=== PATIENT | female | born 1985 | race Caucasian/White ===

== ENCOUNTER 2021-01-13 15:18 | Emergency (ER) | payer OTHER ==
[~2021-01-13] VITALS: Ht 167.6 cm; Wt 60.0 kg
--- NOTE | 2021-01-13 17:13 | NUR ---
manager presentation completed. Radiology results reviewed. MD arrived at bedside for discussion of plan. Awaiting splint and d/c.
--- NOTE | 2021-01-13 17:55 | NUR ---
Splint in place on RLL with good distal CMS noted on reassessment at this time. Pt able to demonstrate proper use of crutches and assisted to discharge desk.
[2021-01-13 18:18] VITALS: BP 120/65
== END 2021-01-13 18:20 | disposition home or self-care (01) ==
LOC: ED 17:45
DX: S92.591A Other fracture of right lesser toe(s), initial encounter for closed fracture (principal); X50.0XXA Overexertion from strenuous movement or load, initial encounter; Y93.89 Activity, other specified; Y92.410 Unspecified street and highway as the place of occurrence of the external cause; Y99.8 Other external cause status
CPT/HCPCS: 29515; 99283

== ENCOUNTER 2021-02-16 09:52 | Inpatient (IN) | payer OTHER ==
[~2021-02-16] VITALS: Ht 167.6 cm; Wt 62.0 kg
--- NOTE | 2021-02-16 09:55 | NUR ---
PT BROUGHT IN BY [facility] FROM [facility] FOR CHIEF COMLPAINT OF RIGHT UPPER ABD PAIN STARTING TODAY, PT RECIEVED FIRST DOSE OF METHADONE LAST NIGHT. PER EMS PT WAS HYPOTENSIVE UPON ARRIVAL 50/30, COOL AND DIAPHORETIC. PT IS ALERT ORIENTED AND ABLE TO ANSWER QUESTIONS
--- NOTE | 2021-02-16 10:05 | NUR ---
JONATHAN WOLF AT BEDSIDE FOR EVALUATION AND US EXAM
[2021-02-16] MEDS ORDERED: HYDROmorphone 1 MG/ML, 1ML INJ ONE (10:21)
[2021-02-16] MEDS ORDERED: ONDANSETRON 2MG/ML, 2ML ONE (10:21)
[2021-02-16] MEDS ORDERED: SODIUM CHLORIDE 0.9% 1,000ML IVBOLUS ONE (10:30)
[2021-02-16] MEDS ORDERED: ONDANSETRON 2MG/ML, 2ML IVPush ONE (10:30)
[2021-02-16] MEDS ORDERED: HYDROmorphone 1 MG/ML, 1ML INJ IV ONE ×2 (10:30→11:00)
--- NOTE | 2021-02-16 10:42 | NUR ---
JONATHAN WOLF AT BEDSIDE TO DISCUSS POC
[2021-02-16] MEDS ORDERED: CEFTRIAXONE 2 GM in DEXTROSE 5% 50 ML IVPB ONE (11:00)
[2021-02-16] MEDS ORDERED: METRONIDAZOLE PMX 500MG/100ML 100 ML IV ONE (11:00)
[2021-02-16 11:02] LABS: MEAN CORPUSCULAR HEMOGLOBIN 31.4 pg (27.0-34.8); MEAN CORPUSCULAR HGB CONC 34.1 g/dL (32.4-35.8); MEAN PLATELET VOLUME 8.7 fL (7.4-10.4); PLATELET COUNT 418 x10^3/uL (130-400); RED BLOOD COUNT 5.31 x10^6/uL (3.82-5.3); RED CELL DISTRIBUTION WIDTH 12.9 % (9.6-15.2)
--- NOTE | 2021-02-16 11:02 | NUR ---
REPORT TO ALEJANDRA COBB
[2021-02-16 11:13] LABS: ALBUMIN 2.4 g/dL (3.4-5.0); ANION GAP 12 mmol/L (5-15); CALCIUM 9.2 mg/dL (8.5-10.1); CHLORIDE 103 mmol/L (98-107)
[2021-02-16] MEDS ORDERED: METRONIDAZOLE PMX 500MG/100ML 100 ML ONE (11:15)
[2021-02-16 11:20] LABS: ALKALINE PHOSPHATASE 60 U/L (45-117); BILIRUBIN,TOTAL 0.6 mg/dL (0.2-1.0); CREATININE 0.74 mg/dL (0.55-1.02); TOTAL PROTEIN 5.6 g/dL (6.4-8.2)
[2021-02-16 11:21] LABS: ALANINE AMINOTRANSFERASE 8 U/L (12-78)
[2021-02-16] MEDS ORDERED: CHLORHEXIDINE 15 ML UDC ONE (11:23)
[2021-02-16] MEDS ORDERED: CHLORHEXIDINE 15 ML UDC PO ONE (11:30)
[2021-02-16 11:50] LABS: LYMPH#(MANUAL) 1.06 x10^3/uL (1-3.4); LYMPHS% (MANUAL) 8 % (22-44); MONOS% (MANUAL) 3 % (2-9)
[2021-02-16 11:51] LABS: BAND#(MANUAL) 3.99 x10^3/uL; BANDS%(MANUAL) 30 % (0-7); SEG#(MANUAL) 7.85 x10^3/uL (1.8-6.8); SEGS% (MANUAL) 59 % (42-75)
[2021-02-16 11:52] LABS: <PLATELET ESTIMATE> INCREASED; <PLT MORPHOLOGY> NORMAL PLT MORPH; <RBC MORPHOLOGY> NORMAL
[2021-02-16] MEDS ORDERED: OMNIPAQUE 350 MG/ML, 100ML BOTTLE ONE (12:00)
[2021-02-16] MEDS ORDERED: FENTANYL PF 250 MCG/5ML ONE (12:05)
[2021-02-16] MEDS ORDERED: PROPOFOL 50 ML ONE (12:05)
[2021-02-16] MEDS ORDERED: SUCCINYLCHOLINE 20 MG/ML, 10ML ONE (12:27)
[2021-02-16] MEDS ORDERED: ROCURONIUM 10MG/ML,5ML ONE (12:27)
[2021-02-16] MEDS ORDERED: PROPOFOL 10 MG/ML, 20ML ONE (12:27)
[2021-02-16] MEDS ORDERED: LABETALOL 5MG/ML, 20ML IV PRN (12:30)
[2021-02-16] MEDS ORDERED: EPHEDRINE 50 MG/ML, 1ML IVPush PRN (12:30)
[2021-02-16] MEDS ORDERED: DIPHENHYDRAMINE 50 MG/ML, 1ML IVPush PRN (12:30)
[2021-02-16] MEDS ORDERED: morphine SULFATE 10 MG/ML, 1ML IVPush PRN (12:30)
[2021-02-16] MEDS ORDERED: ONDANSETRON 2MG/ML, 2ML IVPush PRN (12:30)
[2021-02-16] MEDS ORDERED: EPHEDRINE 50 MG/ML, 1ML IM PRN (12:30)
[2021-02-16] MEDS ORDERED: OXYcodone 5 MG/5 ML ORAL.SOL UDC PO PRN (12:30)
[2021-02-16] MEDS ORDERED: PROMETHAZINE 25 MG/ML, 1ML IVPush PRN (12:30)
[2021-02-16] MEDS ORDERED: MEPERIDINE/PF 25MG/0.5ML IVPush PRN (12:30)
[2021-02-16] MEDS ORDERED: DIAZEPAM 5 MG/ML, 2ML IVPush PRN (12:30)
[2021-02-16] MEDS ORDERED: FENTANYL PF 100 MCG/2ML ONE (13:19)
[2021-02-16] MEDS: FENTANYL PF 100 MCG/2ML IV PRN ×2 (13:20→13:28)
[2021-02-16 14:14] VITALS: BP 136/90
[2021-02-16] MEDS ORDERED: LACTATED RINGERS 1,000 ML IVBOLUS ONE (14:30)
[2021-02-16] MEDS: HYDROmorphone 1 MG/ML, 1ML INJ IV PRN ×4 (14:45→23:56)
[2021-02-16] MEDS: PANTOPRAZOLE 80 MG in SODIUM CHLORIDE 0.9% 100 ML IV SCH ×2 (14:56→23:41)
[2021-02-16] MEDS ORDERED: POTASSIUM CHLORIDE 20 MEQ in SODIUM CHLORIDE 0.9% 250 ML IV ONE (15:00)
[2021-02-16] MEDS: ERTAPENEM 1 GM in SODIUM CHLORIDE 0.9% 50 ML IV SCH (15:00)
[2021-02-16] MEDS ORDERED: morphine SULFATE 10 MG/ML, 1ML IV PRN (15:30)
[2021-02-16] MEDS ORDERED: LORazepam 2 MG/ML, 1ML IV PRN (15:30)
[2021-02-16] MEDS ORDERED: ONDANSETRON 2MG/ML, 2ML IV PRN (15:30)
[2021-02-16] MEDS ORDERED: LORazepam 1MG TABLET PO PRN (15:30)
[2021-02-16] MEDS ORDERED: D5%-0.45NACL+KCL 20MEQ 1,000 ML IV SCH (15:30)
[2021-02-16] MEDS ORDERED: HYDROmorphone 2 MG/ML, 1ML IVPush PRN (15:30)
[2021-02-16 16:15] LABS: ANION GAP 10 mmol/L (5-15); CALCIUM 9.5 mg/dL (8.5-10.1); CHLORIDE 102 mmol/L (98-107); CREATININE 0.51 mg/dL (0.55-1.02)
[2021-02-16] MEDS ORDERED: MAGNESIUM SULFATE PMX 2GM/50ML 50 ML IV ONE (17:00)
[2021-02-16 17:29] LABS: MICROSCOPIC INDICATED
[2021-02-16] MEDS: SODIUM BICARBONATE 8.4% 150 MEQ in DEXTROSE 5% 1,000 ML IV SCH (17:34)
[2021-02-16] MEDS ORDERED: CEFOTETAN PMX 1GM/50ML 50 ML IVPB SCH (18:00)
[2021-02-16] MEDS: METRONIDAZOLE PMX 500MG/100ML 100 ML IVPB SCH (20:53)
[2021-02-17] MEDS: SODIUM BICARBONATE 8.4% 150 MEQ in DEXTROSE 5% 1,000 ML IV SCH (01:43)
[2021-02-17] MEDS: HYDROmorphone 1 MG/ML, 1ML INJ IV PRN ×9 (03:02→22:38)
[2021-02-17 03:45] LABS: MEAN CORPUSCULAR HEMOGLOBIN 31.3 pg (27.0-34.8); MEAN PLATELET VOLUME 8.9 fL (7.4-10.4); PLATELET COUNT 259 x10^3/uL (130-400); RED BLOOD COUNT 4.74 x10^6/uL (3.82-5.3)
[2021-02-17 03:55] LABS: ALANINE AMINOTRANSFERASE 10 U/L (12-78); ALBUMIN 1.9 g/dL (3.4-5.0); CHLORIDE 99 mmol/L (98-107); CREATININE 0.44 mg/dL (0.55-1.02)
[2021-02-17 03:59] LABS: <PLATELET ESTIMATE> ADEQUATE; <PLT MORPHOLOGY> NORMAL PLT MORPH; <RBC MORPHOLOGY> NORMAL; ALKALINE PHOSPHATASE 68 U/L (45-117); ANION GAP 8 mmol/L (5-15); BAND#(MANUAL) 2.17 x10^3/uL; BANDS%(MANUAL) 12 % (0-7); BILIRUBIN,TOTAL 0.3 mg/dL (0.2-1.0); CALCIUM 8.3 mg/dL (8.5-10.1); LYMPH#(MANUAL) 1.99 x10^3/uL (1-3.4); LYMPHS% (MANUAL) 11 % (22-44); MONOS#(MANUAL) 1.09 x10^3/uL (0.3-2.7); MONOS% (MANUAL) 6 % (2-9); SEG#(MANUAL) 12.85 x10^3/uL (1.8-6.8); SEGS% (MANUAL) 71 % (42-75); TOTAL PROTEIN 5.4 g/dL (6.4-8.2)
[2021-02-17] MEDS: METRONIDAZOLE PMX 500MG/100ML 100 ML IVPB SCH (04:38)
[2021-02-17] MEDS: ENOXAPARIN 40 MG/0.4 ML SQ SCH (06:05)
[2021-02-17] MEDS ORDERED: METOPROLOL 1 MG/ML, 5ML IVPush PRN (07:30)
[2021-02-17] MEDS: PANTOPRAZOLE 80 MG in SODIUM CHLORIDE 0.9% 100 ML IV SCH ×2 (09:39→19:59)
[2021-02-17] MEDS ORDERED: LACTATED RINGERS 1,000 ML IV SCH ×2 (11:00)
[2021-02-17] MEDS: ERTAPENEM 1 GM in SODIUM CHLORIDE 0.9% 50 ML IV SCH (15:21)
[2021-02-17] MEDS: LACTATED RINGERS 1,000 ML IV SCH ×2 (17:40→17:51)
[2021-02-17] MEDS ORDERED: LACTATED RINGERS 1,000 ML IVBOLUS ONE (18:00)
[2021-02-18] MEDS: LACTATED RINGERS 1,000 ML IV SCH ×2 (00:20→03:24)
[2021-02-18] MEDS: HYDROmorphone 1 MG/ML, 1ML INJ IV PRN ×10 (00:57→23:59)
[2021-02-18] MEDS: PANTOPRAZOLE 80 MG in SODIUM CHLORIDE 0.9% 100 ML IV SCH ×2 (04:52→19:26)
[2021-02-18] MEDS: ENOXAPARIN 40 MG/0.4 ML SQ SCH (05:14)
[2021-02-18 05:29] LABS: MEAN CORPUSCULAR HEMOGLOBIN 31.5 pg (27.0-34.8); MEAN CORPUSCULAR HGB CONC 33.7 g/dL (32.4-35.8); MEAN PLATELET VOLUME 8.5 fL (7.4-10.4); PLATELET COUNT 231 x10^3/uL (130-400); RED BLOOD COUNT 3.43 x10^6/uL (3.82-5.3); RED CELL DISTRIBUTION WIDTH 12.9 % (9.6-15.2)
[2021-02-18 05:37] LABS: CHLORIDE 101 mmol/L (98-107)
[2021-02-18 05:44] LABS: ANION GAP 8 mmol/L (5-15); CREATININE 0.26 mg/dL (0.55-1.02)
[2021-02-18 06:11] LABS: BAND#(MANUAL) 0.66 x10^3/uL; BANDS%(MANUAL) 5 % (0-7); LYMPH#(MANUAL) 1.31 x10^3/uL (1-3.4); LYMPHS% (MANUAL) 10 % (22-44); MONOS#(MANUAL) 0.52 x10^3/uL (0.3-2.7); MONOS% (MANUAL) 4 % (2-9); SEG#(MANUAL) 10.61 x10^3/uL (1.8-6.8); SEGS% (MANUAL) 81 % (42-75)
[2021-02-18 06:12] LABS: <PLATELET ESTIMATE> ADEQUATE; <PLT MORPHOLOGY> NORMAL PLT MORPH; <RBC MORPHOLOGY> NORMAL
[2021-02-18] MEDS: POTASSIUM CHLORIDE 40 MEQ in D5%-LACTATED RINGERS 1,000 ML IV SCH (10:02)
[2021-02-18] MEDS ORDERED: LACTATED RINGERS 1,000 ML IV SCH (11:00)
[2021-02-18] MEDS ORDERED: POTASSIUM CHLORIDE 40 MEQ in LACTATED RINGERS 1,000 ML IV SCH (11:00)
[2021-02-18 14:05] VITALS: BP 128/75
[2021-02-18] MEDS: ERTAPENEM 1 GM in SODIUM CHLORIDE 0.9% 50 ML IV SCH (15:10)
[2021-02-18] MEDS ORDERED: DOCUSATE 100 MG CAPSULE PO PRN (20:00)
[2021-02-18 20:22] VITALS: BP 123/78
[2021-02-19 00:43] VITALS: BP 114/75
[2021-02-19] MEDS: POTASSIUM CHLORIDE 40 MEQ in D5%-LACTATED RINGERS 1,000 ML IV SCH (00:45)
[2021-02-19] MEDS: HYDROmorphone 1 MG/ML, 1ML INJ IV PRN ×9 (02:20→21:55)
[2021-02-19] MEDS: PANTOPRAZOLE 80 MG in SODIUM CHLORIDE 0.9% 100 ML IV SCH (05:50)
[2021-02-19] MEDS: ENOXAPARIN 40 MG/0.4 ML SQ SCH (05:50)
[2021-02-19 07:31] VITALS: BP 123/81
[2021-02-19 07:36] LABS: ANION GAP 6 mmol/L (5-15); BASOPHILS % (AUTO) 0 % (0-1); CALCIUM 8.4 mg/dL (8.5-10.1); CHLORIDE 104 mmol/L (98-107); EOSINOPHILS % (AUTO) 0 % (1-7); LYMPHOCYTES % (AUTO) 12 % (22-44); MEAN CORPUSCULAR HEMOGLOBIN 31.7 pg (27.0-34.8); MEAN CORPUSCULAR HGB CONC 34.1 g/dL (32.4-35.8); MONOCYTES % (AUTO) 5 % (2-9); NEUTROPHILS % (AUTO) 82 % (42-75); PLATELET COUNT 260 x10^3/uL (130-400); RED BLOOD COUNT 3.33 x10^6/uL (3.82-5.3)
[2021-02-19 07:42] LABS: CREATININE 0.24 mg/dL (0.55-1.02)
[2021-02-19] MEDS: PANTOPRAZOLE 40 MG IV IVPush SCH ×2 (08:34→17:43)
[2021-02-19] MEDS ORDERED: POTASSIUM CHLORIDE 20 MEQ TAB.ER.PRT PO ONE (11:00)
[2021-02-19 13:22] VITALS: BP 132/81
[2021-02-19] MEDS: ERTAPENEM 1 GM in SODIUM CHLORIDE 0.9% 50 ML IV SCH (15:05)
[2021-02-19 19:47] VITALS: BP 124/87
[2021-02-19] MEDS: CLARITHROMYCIN 500 MG TABLET PO SCH (21:41)
[2021-02-20] MEDS: HYDROmorphone 1 MG/ML, 1ML INJ IV PRN ×4 (00:06→08:29)
[2021-02-20 01:57] VITALS: BP 131/91
[2021-02-20] MEDS: PANTOPRAZOLE 40 MG IV IVPush SCH ×2 (05:50→19:05)
[2021-02-20] MEDS: ENOXAPARIN 40 MG/0.4 ML SQ SCH (05:51)
[2021-02-20 08:08] VITALS: BP 142/93
[2021-02-20] MEDS: CLARITHROMYCIN 500 MG TABLET PO SCH ×2 (08:29→20:10)
[2021-02-20] MEDS: OXYcodone IR 5MG TABLET PO PRN ×3 (12:19→20:10)
[2021-02-20 14:24] VITALS: BP 128/88
[2021-02-20] MEDS: ERTAPENEM 1 GM in SODIUM CHLORIDE 0.9% 50 ML IV SCH (16:19)
[2021-02-20 18:56] VITALS: BP 124/75
[2021-02-21] MEDS: OXYcodone IR 5MG TABLET PO PRN ×3 (00:11→08:03)
[2021-02-21 02:05] VITALS: BP 122/84
[2021-02-21 05:11] LABS: BASOPHILS % (AUTO) 1 % (0-1); EOSINOPHILS % (AUTO) 4 % (1-7); LYMPHOCYTES % (AUTO) 30 % (22-44); MEAN CORPUSCULAR HEMOGLOBIN 31.4 pg (27.0-34.8); MEAN CORPUSCULAR HGB CONC 34.1 g/dL (32.4-35.8); MEAN PLATELET VOLUME 7.6 fL (7.4-10.4); MONOCYTES % (AUTO) 10 % (2-9); NEUTROPHILS % (AUTO) 56 % (42-75); PLATELET COUNT 368 x10^3/uL (130-400); RED BLOOD COUNT 3.71 x10^6/uL (3.82-5.3)
[2021-02-21 05:20] LABS: ANION GAP 5 mmol/L (5-15); CALCIUM 8.8 mg/dL (8.5-10.1); CHLORIDE 105 mmol/L (98-107); CREATININE 0.32 mg/dL (0.55-1.02)
[2021-02-21] MEDS: PANTOPRAZOLE 40 MG IV IVPush SCH (05:51)
[2021-02-21] MEDS: ENOXAPARIN 40 MG/0.4 ML SQ SCH (05:52)
[2021-02-21] MEDS: CLARITHROMYCIN 500 MG TABLET PO SCH (08:02)
[2021-02-21 08:05] VITALS: BP 130/87
[2021-02-21] MEDS ORDERED: metroNIDAZOLE 500 MG TABLET PO SCH (11:00)
[2021-02-21] MEDS ORDERED: LEVOFLOXACIN 750 MG TABLET PO SCH (11:00)
[2021-02-21] MEDS ORDERED: CLAR-14 PO (11:33)
[2021-02-21] MEDS ORDERED: PANT40TA3 PO (11:33)
[2021-02-21] MEDS ORDERED: METR500T PO (11:33)
[2021-02-21] MEDS ORDERED: LEVO750T6 PO (11:33)
[2021-02-21] MEDS ORDERED: OXYC5TAB98 PO (11:33)
[2021-02-21 13:00] VITALS: BP 130/88
[2021-02-21] MEDS ORDERED: PANTOPRAZOLE 40MG TABLET PO SCH (16:00)
== END 2021-02-21 16:37 | DRG 853 ==
LOC: OR 10:15 → CCU 13:49 → 4NE 02-18 13:37
PROVIDERS: ADMIT Emergency Medicine; ATTEND Internal Medicine
PROC: 0DJ60ZZ Inspection of Stomach, Open Approach (ICD-10-PCS; 2021-02-16)
PROC: 0T9B30Z Drainage of Bladder with Drainage Device, Percutaneous Approach (ICD-10-PCS; principal; 2021-02-16 18:00)
DX: A41.9 Sepsis, unspecified organism (principal); K26.5 Chronic or unspecified duodenal ulcer with perforation; R65.21 Severe sepsis with septic shock; D62 Acute posthemorrhagic anemia; E87.1 Hypo-osmolality and hyponatremia; E87.2 Acidosis; Z20.822 Contact with and (suspected) exposure to COVID-19; E16.2 Hypoglycemia, unspecified; E87.6 Hypokalemia; J45.909 Unspecified asthma, uncomplicated; S92.354A Nondisplaced fracture of fifth metatarsal bone, right foot, initial encounter for closed fracture; G89.29 Other chronic pain; M25.579 Pain in unspecified ankle and joints of unspecified foot; B95.62 Methicillin resistant Staphylococcus aureus infection as the cause of diseases classified elsewhere; R73.9 Hyperglycemia, unspecified; R74.8 Abnormal levels of other serum enzymes; Z79.899 Other long term (current) drug therapy; Z79.01 Long term (current) use of anticoagulants; Z79.891 Long term (current) use of opiate analgesic; Z88.8 Allergy status to other drugs, medicaments and biological substances; D72.829 Elevated white blood cell count, unspecified
CPT/HCPCS: 36415; 73630; 74240; 96361; 96374; 96375; 99291; J7121; 71045; 71275; 74177; 80048; 80053; 81001; 82962; 83036; 83605; 83690; 83735; 84100; 84443; 84703; 85025; 85379; 86850; 86900; 87040; 87081; 87635; 93005; G0378; J0696; J1170; J1335; J1650; J2405; J2704; J3010; J3480; J7070; Q9967; C1760; C9113; J0330; J2060; J3475; J7030; J7050; J7120

== ENCOUNTER 2021-02-27 09:51 | Inpatient (IN) | payer OTHER ==
[~2021-02-27] VITALS: Ht 167.6 cm; Wt 64.4 kg
[~2021-02-27 09:51] MED LIST: CLAR-14 PO; LEVO750T6 PO; METR500T PO; OXYC5TAB98 PO; PANT40TA3 PO
[2021-02-27] MEDS ORDERED: PROMETHAZINE 25 MG/ML, 1ML ONE (10:21)
[2021-02-27] MEDS ORDERED: MORPHINE SULFATE 4 MG/ML, 1ML ONE (10:22)
[2021-02-27] MEDS ORDERED: PROMETHAZINE 25 MG/ML, 1ML IM ONE (10:30)
[2021-02-27] MEDS ORDERED: SODIUM CHLORIDE FLUSH 10ML SYR IVF ONE (10:30)
[2021-02-27] MEDS ORDERED: SODIUM CHLORIDE 0.9% 1,000ML IVBOLUS ONE ×2 (10:30→12:30)
[2021-02-27] MEDS ORDERED: MORPHINE SULFATE 4 MG/ML, 1ML IVPush PRN (10:30)
[2021-02-27] MEDS ORDERED: OMNIPAQUE 350 MG/ML, 100ML BOTTLE ONE (10:50)
--- NOTE | 2021-02-27 11:03 | NUR ---
in custody. to and from ct. cooperative. labs/ct pending, aware of need for ua. as
--- NOTE | 2021-02-27 11:05 | NUR ---
sts pain improved after meds. as
[2021-02-27 11:07] LABS: BASOPHILS % (AUTO) 1 % (0-1); EOSINOPHILS % (AUTO) 0 % (1-7); LYMPHOCYTES % (AUTO) 16 % (22-44); MEAN CORPUSCULAR HEMOGLOBIN 30.9 pg (27.0-34.8); MEAN CORPUSCULAR HGB CONC 33.1 g/dL (32.4-35.8); MEAN PLATELET VOLUME 7.6 fL (7.4-10.4); MONOCYTES % (AUTO) 6 % (2-9); NEUTROPHILS % (AUTO) 77 % (42-75); PLATELET COUNT 636 x10^3/uL (130-400); RED BLOOD COUNT 4.27 x10^6/uL (3.82-5.3); RED CELL DISTRIBUTION WIDTH 13.6 % (9.6-15.2)
[2021-02-27 11:17] LABS: ANION GAP 7 mmol/L (5-15); CALCIUM 9.3 mg/dL (8.5-10.1); CHLORIDE 108 mmol/L (98-107)
[2021-02-27 11:21] LABS: ALANINE AMINOTRANSFERASE 33 U/L (12-78); ALKALINE PHOSPHATASE 85 U/L (45-117); BILIRUBIN,TOTAL 0.3 mg/dL (0.2-1.0); CREATININE 0.48 mg/dL (0.55-1.02); TOTAL PROTEIN 7.1 g/dL (6.4-8.2)
[2021-02-27 11:57] LABS: MICROSCOPIC NOT IND
[2021-02-27] MEDS ORDERED: AMPICILLIN/SULBACTAM 3 GM in SODIUM CHLORIDE 0.9% 100 ML IV ONE (12:00)
[2021-02-27] MEDS ORDERED: METRONIDAZOLE PMX 500MG/100ML 100 ML IV ONE (12:00)
[2021-02-27] MEDS ORDERED: METRONIDAZOLE PMX 500MG/100ML 100 ML ONE (12:07)
--- NOTE | 2021-02-27 12:27 | NUR ---
TBADM. EKG DONE, PLAN ABX.
--- NOTE | 2021-02-27 12:48 | NUR ---
BREAK RN: PT UPRIGHT ON GURNEY AWAKE & ASKING FOR FOOD, [facility] AT BS, PT RESPONDS APPROP TO STAFF, NAD, NO NEEDS AT THIS TIME, [facility] AT BS WHILE IN CUSTODY, CALL LIGHT WITHIN REACH.
[2021-02-27] MEDS: LACTATED RINGERS 1,000 ML IV SCH (13:30)
[2021-02-27] MEDS: ENOXAPARIN 40 MG/0.4 ML SQ SCH (13:30)
[2021-02-27] MEDS ORDERED: HYDROmorphone 2 MG/ML, 1ML IVPush PRN (13:30)
[2021-02-27] MEDS ORDERED: ONDANSETRON 2MG/ML, 2ML IVPush PRN (13:30)
[2021-02-27] MEDS: METOCLOPRAMIDE 5 MG/ML, 2ML IVPush SCH ×2 (13:30→19:25)
--- NOTE | 2021-02-27 13:31 | NUR ---
2ND ABX [place], PT AWAITING ROOM FOR ADMIT. GIVEN WATER, ON CLEAR LIQUID DIET.
--- NOTE | 2021-02-27 14:47 | NUR ---
SBAR REPORT GIVEN TO RAHUL NURSING SPECIALIST
[2021-02-27] MEDS: ACETAMINOPHEN 325 MG TABLET PO PRN ×2 (17:14→21:48)
[2021-02-27] MEDS: VANCOMYCIN 50 MG/ML ORAL SUSP PO SCH (17:14)
[2021-02-27 20:18] VITALS: BP 130/80
[2021-02-27] MEDS: AMPICILLIN/SULBACTAM 3 GM in SODIUM CHLORIDE 0.9% 100 ML IV SCH (20:35)
[2021-02-27] MEDS: PANTOPRAZOLE 40 MG IV IVPush SCH (20:35)
[2021-02-27] MEDS: MELATONIN 5 MG TABLET PO PRN (21:48)
[2021-02-27] MEDS: CLARITHROMYCIN 500 MG TABLET PO SCH (21:48)
[2021-02-28] MEDS: VANCOMYCIN 50 MG/ML ORAL SUSP PO SCH ×5 (00:20→23:01)
[2021-02-28 01:18] VITALS: BP 113/69
[2021-02-28] MEDS: AMPICILLIN/SULBACTAM 3 GM in SODIUM CHLORIDE 0.9% 100 ML IV SCH ×4 (01:51→20:04)
[2021-02-28] MEDS: METOCLOPRAMIDE 5 MG/ML, 2ML IVPush SCH ×4 (01:51→20:00)
[2021-02-28] MEDS: LACTATED RINGERS 1,000 ML IV SCH ×2 (01:51→10:08)
[2021-02-28] MEDS: ACETAMINOPHEN 325 MG TABLET PO PRN ×4 (06:18→20:04)
[2021-02-28 06:46] LABS: BASOPHILS % (AUTO) 1 % (0-1); EOSINOPHILS % (AUTO) 1 % (1-7); LYMPHOCYTES % (AUTO) 18 % (22-44); MEAN CORPUSCULAR HEMOGLOBIN 31.4 pg (27.0-34.8); MEAN CORPUSCULAR HGB CONC 33.6 g/dL (32.4-35.8); MEAN PLATELET VOLUME 7.6 fL (7.4-10.4); MONOCYTES % (AUTO) 7 % (2-9); NEUTROPHILS % (AUTO) 74 % (42-75); PLATELET COUNT 481 x10^3/uL (130-400); RED BLOOD COUNT 3.78 x10^6/uL (3.82-5.3)
[2021-02-28 06:52] LABS: ANION GAP 3 mmol/L (5-15); CALCIUM 8.5 mg/dL (8.5-10.1); CHLORIDE 110 mmol/L (98-107)
[2021-02-28 06:58] VITALS: BP 136/78
[2021-02-28] MEDS: PANTOPRAZOLE 40 MG IV IVPush SCH ×2 (08:34→20:00)
[2021-02-28] MEDS: CLARITHROMYCIN 500 MG TABLET PO SCH ×2 (08:35→20:04)
[2021-02-28] MEDS: OXYcodone IR 5MG TABLET PO PRN ×3 (10:13→23:01)
[2021-02-28 12:10] VITALS: BP 130/83
[2021-02-28] MEDS: ENOXAPARIN 40 MG/0.4 ML SQ SCH (14:22)
[2021-02-28 17:36] LABS: CLOSTRIDIUM DIFFICILE ANTIGEN NEGATIVE; CLOSTRIDIUM DIFFICILE TOXIN NEGATIVE (Negative)
[2021-02-28 19:01] VITALS: BP 132/82
[2021-02-28] MEDS: MELATONIN 5 MG TABLET PO PRN (23:01)
[2021-03-01 01:40] VITALS: BP 115/74
[2021-03-01] MEDS: AMPICILLIN/SULBACTAM 3 GM in SODIUM CHLORIDE 0.9% 100 ML IV SCH ×4 (02:00→19:29)
[2021-03-01] MEDS: METOCLOPRAMIDE 5 MG/ML, 2ML IVPush SCH ×4 (02:13→21:48)
[2021-03-01] MEDS: LACTATED RINGERS 1,000 ML IV SCH (03:36)
[2021-03-01] MEDS: OXYcodone IR 5MG TABLET PO PRN ×3 (05:22→19:31)
[2021-03-01] MEDS: ACETAMINOPHEN 325 MG TABLET PO PRN ×3 (05:22→19:29)
[2021-03-01] MEDS: VANCOMYCIN 50 MG/ML ORAL SUSP PO SCH (05:22)
[2021-03-01 05:41] LABS: BASOPHILS % (AUTO) 1 % (0-1); EOSINOPHILS % (AUTO) 2 % (1-7); LYMPHOCYTES % (AUTO) 24 % (22-44); MEAN CORPUSCULAR HEMOGLOBIN 31.1 pg (27.0-34.8); MEAN CORPUSCULAR HGB CONC 33.6 g/dL (32.4-35.8); MEAN PLATELET VOLUME 7.4 fL (7.4-10.4); MONOCYTES % (AUTO) 7 % (2-9); NEUTROPHILS % (AUTO) 67 % (42-75); PLATELET COUNT 473 x10^3/uL (130-400); RED BLOOD COUNT 3.84 x10^6/uL (3.82-5.3); RED CELL DISTRIBUTION WIDTH 13.9 % (9.6-15.2)
[2021-03-01 07:09] VITALS: BP 126/79
[2021-03-01] MEDS: PANTOPRAZOLE 40 MG IV IVPush SCH ×2 (08:32→21:47)
[2021-03-01] MEDS: CLARITHROMYCIN 500 MG TABLET PO SCH ×2 (08:33→21:47)
[2021-03-01 12:12] VITALS: BP 123/65
[2021-03-01] MEDS: ENOXAPARIN 40 MG/0.4 ML SQ SCH (14:16)
[2021-03-01 19:50] VITALS: BP 126/70
[2021-03-01] MEDS: MELATONIN 5 MG TABLET PO PRN (21:48)
[2021-03-02] MEDS: AMPICILLIN/SULBACTAM 3 GM in SODIUM CHLORIDE 0.9% 100 ML IV SCH ×2 (02:21→09:07)
[2021-03-02] MEDS: METOCLOPRAMIDE 5 MG/ML, 2ML IVPush SCH ×2 (02:28→09:07)
[2021-03-02] MEDS: OXYcodone IR 5MG TABLET PO PRN ×3 (02:29→13:09)
[2021-03-02] MEDS: ACETAMINOPHEN 325 MG TABLET PO PRN (02:29)
[2021-03-02 02:57] VITALS: BP 116/73
[2021-03-02 07:27] VITALS: BP 114/81
[2021-03-02] MEDS: PANTOPRAZOLE 40 MG IV IVPush SCH (09:06)
[2021-03-02] MEDS: CLARITHROMYCIN 500 MG TABLET PO SCH (09:06)
[2021-03-02] MEDS: ENOXAPARIN 40 MG/0.4 ML SQ SCH (13:09)
[2021-03-02] MEDS ORDERED: PANT40TA3 PO (13:34)
[2021-03-02] MEDS ORDERED: AMOX1TAB64 PO (13:34)
[2021-03-02] MEDS ORDERED: METR500T PO (13:34)
[2021-03-02] MEDS ORDERED: OXYC5TAB98 PO ×2 (13:34)
[2021-03-02] MEDS ORDERED: METO5TAB57 PO (13:34)
[2021-03-02 13:38] VITALS: BP 120/86
[2021-03-03] MEDS ORDERED: OXYC5TAB98 PO (09:58)
== END 2021-03-02 18:18 | disposition home or self-care (01) | DRG 872 ==
LOC: ED 11:44 → EDIP 12:25 → 4WST 15:05
PROVIDERS: ADMIT Internal Medicine; ATTEND Hospitalist
DX: A41.9 Sepsis, unspecified organism (principal); K56.7 Ileus, unspecified; J45.20 Mild intermittent asthma, uncomplicated; K52.9 Noninfective gastroenteritis and colitis, unspecified; N73.9 Female pelvic inflammatory disease, unspecified; Z88.8 Allergy status to other drugs, medicaments and biological substances
CPT/HCPCS: 36415; 74018; 84145; 87046; 89055; 96360; 96361; 96372; 99285; J3370; 74176; 74177; 76705; 80048; 80053; 81003; 83605; 83690; 83735; 84100; 85025; 87040; 87324; 93005; G0378; J0295; J1650; J2550; Q9967; C9113; J2270; J2765; J7030; J7120

== ENCOUNTER 2021-03-08 13:24 | Inpatient (IN) | payer OTHER ==
[~2021-03-08] VITALS: Ht 167.6 cm; Wt 60.5 kg
[~2021-03-08 13:24] MED LIST changes: +AMOX1TAB64 PO; +METO5TAB57 PO
--- NOTE | 2021-03-08 13:44 | NUR ---
store shopper: Pt ambulatory to room from lobby at this time.
--- NOTE | 2021-03-08 14:16 | NUR ---
First contact with pt. Pt reports abd pain, N/V/D since having "ulcer surgery" on 02/16/21. Pt reports she has been seen here multiple times, admitted once for abscesses in her abd since the surgery. Pt able to ambulate to bathroom with steady gait. Urine and stool samples collected, labeled and sent to lab. Pt able to change herself into gown and position herself for comfort in bed. Warm blanket provided.
[2021-03-08] MEDS ORDERED: SODIUM CHLORIDE FLUSH 10ML SYR IVF ONE (14:30)
[2021-03-08] MEDS ORDERED: SODIUM CHLORIDE 0.9% 1,000ML IVBOLUS ONE (14:30)
[2021-03-08] MEDS ORDERED: ONDANSETRON 2MG/ML, 2ML IVPush ONE (14:30)
[2021-03-08 14:44] LABS: BASOPHILS % (AUTO) 1 % (0-1); EOSINOPHILS % (AUTO) 2 % (1-7); LYMPHOCYTES % (AUTO) 29 % (22-44); MEAN CORPUSCULAR HEMOGLOBIN 31.2 pg (27.0-34.8); MEAN CORPUSCULAR HGB CONC 32.9 g/dL (32.4-35.8); MEAN PLATELET VOLUME 7.8 fL (7.4-10.4); MONOCYTES % (AUTO) 8 % (2-9); NEUTROPHILS % (AUTO) 61 % (42-75); PLATELET COUNT 345 x10^3/uL (130-400); RED BLOOD COUNT 4.01 x10^6/uL (3.82-5.3)
[2021-03-08 14:51] LABS: ALBUMIN 3.2 g/dL (3.4-5.0); ANION GAP 3 mmol/L (5-15); CALCIUM 8.9 mg/dL (8.5-10.1); CHLORIDE 104 mmol/L (98-107)
[2021-03-08] MEDS ORDERED: MORPHINE SULFATE 4 MG/ML, 1ML ONE ×2 (14:53→17:22)
[2021-03-08] MEDS ORDERED: ONDANSETRON 2MG/ML, 2ML ONE (14:53)
[2021-03-08 14:56] LABS: ALANINE AMINOTRANSFERASE 38 U/L (12-78); ALKALINE PHOSPHATASE 91 U/L (45-117); BILIRUBIN,TOTAL 0.2 mg/dL (0.2-1.0); TOTAL PROTEIN 7.1 g/dL (6.4-8.2)
[2021-03-08 15:00] LABS: CREATININE < 0.15 mg/dL (0.55-1.02)
[2021-03-08] MEDS: MORPHINE SULFATE 4 MG/ML, 1ML IVPush PRN ×2 (15:13→17:30)
[2021-03-08 16:02] LABS: MICROSCOPIC INDICATED
[2021-03-08] MEDS ORDERED: OMNIPAQUE 350 MG/ML, 100ML BOTTLE ONE (16:06)
[2021-03-08] MEDS ORDERED: METOCLOPRAMIDE 5 MG/ML, 2ML ONE (17:22)
[2021-03-08] MEDS ORDERED: METOCLOPRAMIDE 5 MG/ML, 2ML IVPush ONE (18:00)
[2021-03-08] MEDS ORDERED: metroNIDAZOLE 500 MG TABLET PO SCH (18:30)
[2021-03-08] MEDS ORDERED: ONDANSETRON 2MG/ML, 2ML IVPush PRN (18:30)
[2021-03-08] MEDS ORDERED: ACETAMINOPHEN 325 MG TABLET PO PRN (18:30)
[2021-03-08] MEDS: SODIUM CHLORIDE 0.9% 1,000 ML IV SCH ×2 (18:49→20:57)
[2021-03-08] MEDS ORDERED: METRONIDAZOLE PMX 500MG/100ML 100 ML IVPB SCH (19:30)
--- NOTE | 2021-03-08 19:50 | NUR ---
REPORT CALLED TO RYAN COBB, PT CARE TO BE TRANSFERRED ON ARRIVAL TO THE FLOOR. NAD. PROVIDED ORAL SWABS FOR COMFORT, Patient is resting comfortably in bed. Bed in lowest, rails engaged, call light on lap. Vital Signs within normal limits. WCTM.
[2021-03-08] MEDS: AMPICILLIN/SULBACTAM 3 GM in SODIUM CHLORIDE 0.9% 100 ML IV SCH (19:54)
[2021-03-08 20:40] VITALS: BP 111/73
[2021-03-08] MEDS: morphine SULFATE 10 MG/ML, 1ML IVPush PRN (20:45)
[2021-03-08] MEDS ORDERED: AMOXICILLIN/CLAV 875-125MG TABLET PO SCH (21:00)
[2021-03-08] MEDS: METRONIDAZOLE PMX 500MG/100ML 100 ML IVPB SCH (23:03)
[2021-03-09 00:15] VITALS: BP 108/67
[2021-03-09] MEDS: morphine SULFATE 10 MG/ML, 1ML IVPush PRN ×3 (01:37→08:29)
[2021-03-09] MEDS: AMPICILLIN/SULBACTAM 3 GM in SODIUM CHLORIDE 0.9% 100 ML IV SCH ×2 (01:37→08:28)
[2021-03-09 05:25] LABS: BASOPHILS % (AUTO) 1 % (0-1); EOSINOPHILS % (AUTO) 3 % (1-7); LYMPHOCYTES % (AUTO) 39 % (22-44); MEAN CORPUSCULAR HEMOGLOBIN 31.2 pg (27.0-34.8); MEAN CORPUSCULAR HGB CONC 33.4 g/dL (32.4-35.8); MEAN PLATELET VOLUME 7.5 fL (7.4-10.4); MONOCYTES % (AUTO) 10 % (2-9); NEUTROPHILS % (AUTO) 48 % (42-75); PLATELET COUNT 299 x10^3/uL (130-400); RED BLOOD COUNT 3.78 x10^6/uL (3.82-5.3); RED CELL DISTRIBUTION WIDTH 14.1 % (9.6-15.2)
[2021-03-09 05:29] LABS: CHLORIDE 108 mmol/L (98-107)
[2021-03-09 05:48] LABS: ALANINE AMINOTRANSFERASE 35 U/L (12-78); ALBUMIN 2.7 g/dL (3.4-5.0); ALKALINE PHOSPHATASE 76 U/L (45-117); BILIRUBIN,TOTAL 0.2 mg/dL (0.2-1.0); CALCIUM 8.8 mg/dL (8.5-10.1); CREATININE 0.41 mg/dL (0.55-1.02); TOTAL PROTEIN 6.1 g/dL (6.4-8.2)
[2021-03-09] MEDS ORDERED: PANTOPRAZOLE 40MG TABLET PO SCH (06:00)
[2021-03-09 06:02] LABS: ANION GAP 2 mmol/L (5-15)
[2021-03-09 07:05] VITALS: BP 101/64
[2021-03-09] MEDS: METRONIDAZOLE PMX 500MG/100ML 100 ML IVPB SCH (07:45)
[2021-03-09] MEDS ORDERED: OMNIPAQUE 350 MG/ML, 150 ML BOTTLE ONE (11:13)
[2021-03-09] MEDS ORDERED: OXYC1TAB14 PO (12:57)
[2021-03-09 13:51] VITALS: BP 112/80
== END 2021-03-09 14:25 | disposition home or self-care (01) | DRG 392 ==
LOC: ED 16:18 → OBSVTOIN 17:07 → EDIP 17:07 → 3N 20:13 → DCLOUNGE 03-09 14:15
PROVIDERS: ADMIT Family Medicine; ATTEND Family Medicine
DX: R10.9 Unspecified abdominal pain (principal); G89.29 Other chronic pain; J45.20 Mild intermittent asthma, uncomplicated; K52.9 Noninfective gastroenteritis and colitis, unspecified; N73.9 Female pelvic inflammatory disease, unspecified; Z86.19 Personal history of other infectious and parasitic diseases; Z88.8 Allergy status to other drugs, medicaments and biological substances
CPT/HCPCS: 36415; 74177; 74250; 80053; 81001; 83690; 83735; 84100; 84443; 84703; 85025; 89055; 96374; 96375; 96376; G0378; J0295; J2405; Q9967; J2270; J2765; J7030